=== PATIENT | female | born 1975 | race Caucasian/White ===

== ENCOUNTER 2016-08-20 16:34 | Emergency (ER) | payer OTHER ==
[2016-08-20 17:13] VITALS: BP 116/67; TEMP 98.1; BMI 26.0
--- NOTE | 2016-08-20 17:13 | PDOC ---
Rapid Medical Evaluation Time Seen by Provider: 08/20/16 17:10 Medical Evaluation: Allergies Allergy/AdvReac Type Severity Reaction Status Date / Time Penicillins Allergy Severe Difficulty Verified 08/20/16 17:10 Breathing Pork/Porcine Containing Allergy Hives Verified 08/20/16 17:10 Products 08/20/16 17:11 I have performed a brief in-person evaluation of this patient. The patient presents with a chief complaint of: Lower back pain x 3 days after cleaning home. H/o fibromyalgia and "7 herniated discs in my spine". On muscle relaxants , lyrica and gabapentin at home and taking meds w/ no relief Pertinent physical exam findings: Tachycardic to 108 and appears uncomfortable 2 /2 pain w/ diffuse ttp to lower abd I have ordered the following: nothing, defer pain management to ED provider The patient will proceed to the ED for further evaluation.
--- NOTE | 2016-08-20 17:52 | PDOC ---
History of Present Illness - General Chief Complaint: Injury Stated Complaint: INJURY Time Seen by Provider: 08/20/16 17:10 History Source: Patient Exam Limitations: No Limitations - History of Present Illness Initial Comments: CHIEF COMPLAINT: 40 y/o afebrile female with PMH 7 slipped discs in her back c/ o back pain x 3 days. 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 She states she took flexeril once on the first day and once yesterday without relief. She states the pain travels into her right leg. She denies fall, new trauma to back, numbness/tingling in LEs, saddle anesthesia, bowel/ bladder incontinence. Vital signs on arrival are notable for pulse of 108. REVIEW OF SYSTEMS: GENERAL/CONSTITUTIONAL: No fever/chills. No weakness. No weight change. HEAD, EYES, EARS, NOSE AND THROAT: No change in vision. No ear pain or discharge. No sore throat. CARDIOVASCULAR: No chest pain or shortness of breath. RESPIRATORY: No cough, wheezing, or hemoptysis. GASTROINTESTINAL: No abd pain, nausea, vomiting, diarrhea. GENITOURINARY: No dysuria, frequency, or change in urination. MUSCULOSKELETAL: No joint or muscle swelling or pain. No neck pain. +low back pain. SKIN: No rash or easy bruising. NEUROLOGIC: No headache, vertigo, loss of consciousness, or loss of sensation. PHYSICAL EXAM: GENERAL: The patient is awake, alert, and fully oriented, in no acute distress. She is well appearing and ambulatory with normal gait. HEAD: Normal with no signs of trauma. ENT: Pupils equal, round and reactive to light, extraocular movements intact, sclera anicteric, conjunctiva clear. Neck supple. LUNGS: Clear to auscultation bilaterally. Normal excursion. No respiratory distress or use of accessory muscles. CV: RRR, S1/S2, no MRG. Cap refill < 2 sec. ABDOMEN: Soft, non-distended, non-tender even to deep palpation, no hepatomegaly or splenomegaly, no masses. BACK: Reproducible pain with palpation of right lower lumbar paravertebral muscles and in right gluteal and piriformis muscles. EXTREMITIES: Normal range of motion, no edema. NEUROLOGICAL: Normal speech, normal gait. CN II-XII grossly intact. No saddle anesthesia. PSYCH: Normal mood, normal affect. SKIN: Warm, dry, normal turgor, no rashes or lesions noted. Past History - Past Medical History Allergies/Adverse Reactions: Allergies Allergy/AdvReac Type Severity Reaction Status Date / Time Penicillins Allergy Severe Difficulty Verified 08/20/16 17:10 Breathing Pork/Porcine Containing Allergy Hives Verified 08/20/16 17:10 Products Home Medications: Ambulatory Orders Levetiracetam [Keppra] 750 mg PO BID 09/30/12 Metformin HCl [Glucophage] 500 mg PO DAILY 09/30/12 Clindamycin [Cleocin -] 300 mg PO QID #28 capsule 08/11/15 Asthma: Yes CVA: Yes (AGE 15) Diabetes: Yes HTN: Yes (CX MEDS OFTEN FOR UNCONTROLLED HTN) Kidney Stones: Yes Suicide Attempt (Hx): No Seizures: Yes Other medical history: BACK PROBLEMS,FIBROMYALGIA - Surgical History Cholecystectomy: Yes - Immunization History Immunization Up to Date: Yes (FLU AND PNA AUGUST 2012) - Psycho/Social/Smoking Cessation Hx Anxiety: No Suicidal Ideation: No Smoking Status: No Smoking History: Never smoked Years of Tobacco Use: 23 Have you smoked in the past 12 months: No Number of Cigarettes Smoked Daily: 0 Information on smoking cessation initiated: No Hx Alcohol Use: No Drug/Substance Use Hx: No Substance Use Type: None *Physical Exam - Vital Signs Last Vital Signs Temp Pulse Resp BP Pulse Ox 98.1 F 108 H 18 116/67 100 08/20/16 17:10 08/20/16 17:10 08/20/16 17:10 08/20/16 17:10 08/20/16 17:10 Medical Decision Making - Medical Decision Making A/P: 40 y/o afebrile female with chronic low back pain c/o flare up of right lower back pain. The patient is presenting with signs and symptoms of sciatica. Suggested she take Flexeril and Ibuprofen 3 times per day with food for pain, massage the affected area and stretch hourly (stretches were demonstrated in the ER). The patient was instructed to f/u with her regular doctor within 1 week if symptoms do not improve. The patient verbalizes understanding of all instructions, has no further questions and is awaiting discharge. *DC/Admit/Observation/Transfer Diagnosis at time of Disposition: Sciatica of right side Low back pain Qualifiers: Chronicity: acute Back pain laterality: right Sciatica presence: with sciatica Sciatica laterality: sciatica of right side Qualified Code(s): M54.41 - Lumbago with sciatica, right side - Discharge Dispostion Disposition: HOME Condition at time of disposition: Good - Referrals Referrals: Joyce York MD [Primary Care Provider] - Call tomorrow - Patient Instructions Printed Discharge Instructions: DI for Back Pain With Sciatica Additional Instructions: Discharge Instructions: -Take Ibuprofen and Flexeril 3 times per day with food -Stretch your back every hour as shown in the ER. -Massage the affected area multiple times per day -Apply heating pad to the affected area -Follow up with your doctor as soon as possible. -Return to the ER with any worsening or concerning symptoms
[2016-08-20 18:19] VITALS: PULSE 84
== END 2016-08-20 18:15 | disposition home or self-care (01) ==
LOC: JERFT 16:34
DX: M54.41 Lumbago with sciatica, right side (principal); I10 Essential (primary) hypertension; E11.9 Type 2 diabetes mellitus without complications; Z79.84 Long term (current) use of oral hypoglycemic drugs; G40.909 Epilepsy, unspecified, not intractable, without status epilepticus; Z86.73 Personal history of transient ischemic attack (TIA), and cerebral infarction without residual deficits
CPT/HCPCS: 99281-25

== ENCOUNTER 2019-04-24 07:24 | Day surgery (SDC) | payer OTHER ==
[2019-04-23 13:50] VITALS: BMI 27.3
--- NOTE | 2019-04-24 09:01 | HP ---
Admitting History and Physical - Admission Chief Complaint: Axial Neck Pain History of Present Illness: Pt presents for axial neck pain. She is s/p one diagnostic cervical mbb. She is her for second diagnostic Mbb. History Source: Patient - Past Medical History ...LMP: 04/05/19 - Advance Directives Advance Directives: Yes: Living Will, Health Care Proxy - Smoking History Smoking history: Never smoked Have you smoked in the past 12 months: No Aproximately how many cigarettes per day: 0 - Alcohol/Substance Use Hx Alcohol Use: No Home Medications - Allergies Allergies/Adverse Reactions: Allergies Allergy/AdvReac Type Severity Reaction Status Date / Time Penicillins Allergy Severe Difficulty Verified 04/23/19 13:51 Breathing Pork/Porcine Containing Allergy Hives Verified 04/23/19 13:51 Products - Home Medications Home Medications: Ambulatory Orders Albuterol Sulfate Inhaler - [Ventolin Hfa Inhaler -] 2 inh PO Q6H 04/10/17 Aspirin/Acetaminophen/Caffeine [Excedrin Migraine Caplet] 1 each PO PRN PRN Physical Examination Vital Signs: Vital Signs Temperature 98.1 F 04/24/19 07:49 Pulse Rate 76 04/24/19 07:49 Respiratory Rate 20 04/24/19 07:49 Blood Pressure 108/64 04/24/19 07:49 O2 Sat by Pulse Oximetry (%) 98 04/24/19 07:49 Constitutional: Yes: Well Nourished, No Distress, Calm Eyes: Yes: Conjunctiva Clear HENT: Yes: Atraumatic, Normocephalic Neck: Yes: Trachea Midline Cardiovascular: Yes: Regular Rate and Rhythm Respiratory: Yes: Regular Musculoskeletal: Yes: Other (NECK PAIN) Assessment/Plan The patients neck pain is seconday to cervical spondylosis s/p 1 diagnostic medial branch block. 1. Pt is here today for second diagnostic at C3 C4 c5 Bilateral. 2. Follo up in 1 week for follow up. David Palacios DO
[2019-04-24] MEDS ORDERED: BUPIVACAINE HCL/PF 0.5% (5MG/ML) 10 ML VIAL IJ ONE (10:06)
[2019-04-24] MEDS ORDERED: IOHEXOL 180 MG/1 ML ML IJ ONE (10:11)
[2019-04-24 10:38] VITALS: PULSE 73
[2019-04-24 11:01] VITALS: BP 103/63; TEMP 98.6
--- NOTE | 2019-04-25 15:43 | PROC ---
Procedure Note Procedure: Date: 04/24/2019 : 1975 Age: 43 Year(s) Sex: Female Name of the patient: Amparo Nicholas Preoperative Diagnosis: Neck pain , Cervical spondylosis Postoperative Diagnosis: Same Procedure Performed: Cervical Medial branch block C3 C4 C5 Bilateral Anesthesia: Local Procedure: After the risks and benefits were explained, informed consent was obtained. The patient was then taken to the procedure room and positioned prone on the procedure table. Time out was performed. The region overlying the appropriate vertebral bodies was identified using fluoroscopy. The skin was prepped and draped in the usual sterile fashion. Using fluoroscopic guidance, 25 gauge 3.5 inch spinal needles were then introduced to the fossa at the center of the waists of the articular pillars where the BILATERAL C3, C4, and C5 medial branches are located. Omnipaque 180 confirmed appropriate needle placement. There was no epidural or vascular flow observed. .5 % bupivacaine was drawn into a syringe. 0.5cc of this solution was then injected at each level. The same procedure was repeated on the LEFT side at the same levels. The patient tolerated the procedure well and there were no complications. The patient was taken to the post procedure recovery area in good condition. Vital signs remained stable before, during, and after the procedure. The patient was given oral and written follow-up instructions. The patient was given a follow up appointment with me in the near future. David BARRY
== END 2019-04-24 11:05 | disposition home or self-care (01) ==
LOC: JASU-SURG 07:24
PROVIDERS: ATTEND Pain Medicine Pain Medicine
PROC: BR14YZZ Fluoroscopy of Cervical Facet Joint(s) using Other Contrast (ICD-10-PCS; 2019-04-24)
PROC: 3E0T3BZ Introduction of Anesthetic Agent into Peripheral Nerves and Plexi, Percutaneous Approach (ICD-10-PCS; principal; 2019-04-24 10:02)
DX: M47.892 Other spondylosis, cervical region (principal); M54.2 Cervicalgia
CPT/HCPCS: 76000-TC-FY; 84703

== ENCOUNTER 2019-11-23 10:48 | Emergency (ER) | payer OTHER ==
[2019-11-23 10:56] VITALS: BP 109/81; PULSE 104; TEMP 99.2; BMI 27.9
--- OUTSIDE RECORDS SUMMARY | 2019-11-23 11:20 | XMS ---
:1975 Author Organization [facility] Care Team Providers Name Role Phone EUGENE, CNR9 Unavailable Unavailable David Palacios Unavailable David Palacios Unavailable Re-disclosure Warning The records that you are about to access may contain information from federally- assisted alcohol or drug abuse programs. If such information is present, then the following federally mandated warning applies: This information has been disclosed to you from records protected by federal confidentiality rules (42 CFR part 2). The federal rules prohibit you from making any further disclosure of this information unless further disclosure is expressly permitted by the written consent of the person to whom it pertains or as otherwise permitted by 42 CFR part 2. A general authorization for the release of medical or other information is NOT sufficient for this purpose. The Federal rules restrict any use of the information to criminally investigate or prosecute any alcohol or drug abuse patient.The records that you are about to access may contain highly sensitive health information, the redisclosure of which is protected by Article 27-F of the [place] State Public Health law. If you continue you may haveaccess to information: Regarding HIV / AIDS; Provided by facilities licensed or operated by the [facility] Office of Mental Health; or Provided by the [facility] Office for People With Developmental Disabilities. If such information is present, then the following [facility] mandated warning applies: This information has been disclosed to you from confidential records which are protected by state law. State law prohibits you from making any further disclosure of this information without the specific written consent of the person to whom it pertains, or as otherwise permitted by law. Any unauthorized further disclosure in violation of state law may result in a fine or [place] health care facility sentence or both. A general authorization for the release of medical or other information is NOT sufficient authorization for further disclosure. Allergies and Adverse Reactions Type Description Substance Reaction Status Data Source(s ) Drug allergy NSAIDS Drug allergy Unknown Active eCW3 ([facility]) Encounters Encounter Providers Location Date Indications Data Source(s ) Outpatient Attender: CNR9 [facility] 10/03/2019 [facility] ([facility] 11:36:20 AM [facility]) Patient admitted. Attender: David Palacios 10/01/2019 12:00:00 AM EDT [facility] ([facility], ) Office Outpatient Attender: [facility] 09/02/2019 09:46:47 AM [facility] ([facility]) Patient admitted. Outpatient Attender: [facility] 05/22/2019 06:26:17 AM [facility] ([facility]) Patient admitted. Outpatient Attender: [facility] 03/26/2019 03:24:50 PM [facility] ([facility]) Patient admitted. Outpatient Attender: [address] 03/16/2019 04:57:01 PM [facility] ([facility]) Patient admitted. Outpatient [facility] 04/23/2018 12:00:00 AM eCW3 ([facility] A28 EST - 04/23/2018 12:00:00 [facility]) AM EST Immunizations Vaccine Date Status Description Data Source(s) As of November 1998, a 04/23/2018 completed eCW3 ([facility] 2-dose hepatitis B 05:15:00 PM [facility]) schedule for adolescents (11-15 year olds) was FDA approved for [employer]ck's Recombivax HB adult formulation. Use code 43 for the 2-dose. This code should be used for any use of standard adult formulation of hepatitis B vaccine. Medications Medication Brand Start Product Dose Route Administrative Pharmacy at Indications Reaction Description Data Name Date Form Instructions Instructions Source(s) Diclofenac DICLOF 09/30/ GEL 1 complet DICLOFE NAC MED[facility] (St Sodium 0.2019 ed TOPICAL [facility] MG/MG TOPICA 12:00: Medical, Topical Gel [id number] 00 AM PC) DICLOFENAC 33 EDT TOPICAL:855 633 Glucose UNK 01/11/ active Glucose Test eCW3 Test Strips 2015 Strips ([facility] Compatiable 12:00: Compatiable [facility] with 00 AM with Health Patients EST Patients Care) Machine Machine LANCETS UNK 01/11/ active LANCETS eCW3 2015 ([facility] 12:00: [facility] 00 AM Health EST Care) Sumatriptan Imitre 12/02/ active Imitrex 100 eCW3 100 MG Oral x 100 2013 mg ([facility] Tablet mg 12:00: [facility] [Imitrex] 00 AM Health Imitrex 100 EDT Care) mg 120 ACTUAT Symbic 2.0 active Symbicor t eCW3 Budesonide ort 2012 {puff 160-4.5 ([facility] on 0.16 160-4. 12:00: s} MCG/ACT [facility] MG/ACTUAT / 5 00 AM Health formoterol MCG/AC EST Care) fumarate T 0.0045 MG/ACTUAT Metered Dose Inhaler [Symbicort] Symbicort 160-4.5 MCG/ACT Pseudoephed Pseudo 12/20/ suspend Pseudo ephedr eCW3 rine ephedr 2011 ed ine HCl 30 ([facility] Hydrochlori ine 12:00: mg [facility] de 30 MG HCl 30 00 AM Health Oral Tablet mg EDT Care) Pseudoephed rine HCl 30 mg 200 ACTUAT Ventol 2.0 active Ventolin HFA eCW3 Albuterol in HFA 2011 {puff 108 (90 ([facility] son 0.09 108 12:00: s} Base) [facility] MG/ACTUAT (90 00 AM MCG/ACT Health Metered Base) EST Care) Dose MCG/AC Inhaler T [Ventolin] Ventolin HFA 108 (90 Base) MCG/ACT Clobetasol Clobet 1.0 active Clobetas ol eCW3 Propionate asol 2011 {appl Propionate ([facility] 0.5 MG/ML Propio 12:00: icati 0.05 % Stacy er Topical adryan 00 AM on_to Health Cream 0.05 % EST _affe Care) Clobetasol cted_ Propionate area} 0.05 % Levetiracet Keppra 03/13/ active Keppra 500 eCW3 am 500 MG 500 mg 2012 mg ([facility] Oral Tablet 12:00: [facility] [Keppra] 00 AM [facility] Keppra 500 EST Care) mg pregabalin Lyrica 1.0 active Lyrica 75 MG eCW3 75 MG Oral 75 MG {caps ([facility] Capsule ule} [facility] [Lyrica] [facility] Lyrica 75 Care) MG Permethrin Permet suspend Permethri n 5 eCW3 50 MG/ML hrin 5 ed % ([facility] Topical % [facility] Permethrin Care) 5 % Albuterol UNK 2.0 active Albuterol eCW 3 Sulfate HFA {puff Sulfate HFA ([facility] 108 (90 s} 108 (90 [facility] Base) Base) Health MCG/ACT MCG/ACT Care) Insurance Providers Payer name Policy type Policy ID Covered Covered democrat's Policy P alfredo / Coverage democrat ID relationship to Alonzo Inf ormation type alonzo AFFINITY [id number] [employer] [id number] Problems, Conditions, and Diagnoses Code Display Name Description Problem Type Effective Data Dates Source(s) M47.812 Spondylosis without SPONDYLOSIS Problem 10/01/2019 MEDG EN (St myelopathy or WITHOUT 12:00:00 AM [facility] radiculopathy, MYELOPATHY OR EDT Medical , ) cervical region RADICULOPATHY, CERVICAL REGION D24.9 Fibroadenoma of Fibroadenoma of Problem 11/19/2017 eCW3 ([facility] breast, unspecified breast, 12:00:00 AM [facility] laterality unspecified EDT Care) laterality M15.9 Osteoarthritis Polyosteoarthriti Problem 04/01/2017 eCW 3 ([facility] s, unspecified 12:00:00 AM [facility] EST Care) M54.41 Lumbago with Lumbago with Problem 04/01/2017 eCW3 ([facility] sciatica, right side sciatica, right 12:00:00 A [facility] EST Care) G40.909 Epilepsy Epilepsy, Problem 04/01/2017 eCW3 ([facility] unspecified, not 12:00:00 AM [facility] ealth intractable, EST Care) without status epilepticus G89.29 Other chronic pain Other chronic Problem 04/01/2017 eCW 3 ([place] pain 12:00:00 AM [facility]) R92.8 Abnormal mammogram Abnormal Problem 12/12/2016 eCW3 ( [place] mammogram 12:00:00 AM [facility] EDT Care) K21.9 Gastroesophageal GERD Problem 05/30/2016 eCW3 ([facility] reflux disease (gastroesophageal 12:00:00 AM [facility] reflux disease) EDT Care) J45.40 Moderate persistent Asthma, moderate Problem 05/02/2016 eCW3 ([place] asthma persistent 12:00:00 AM [facility]) Surgeries/Procedures Procedure Description Date Indications Data Source(s) Documentation of current 10/01/2019 MED GEN ([facility] medications (procedure) 12:00:00 AM EDT Cristiano chavez, REILLY) Documentation of current 10/01/2019 MED GEN ([facility] medications (procedure) 12:00:00 AM EDT Cristiano chavez, PC) Documentation of current 10/01/2019 MED GEN ([facility] medications (procedure) 12:00:00 AM EDT Cristiano chavez, ) Documentation of current 10/01/2019 MED GEN ([facility] medications (procedure) 12:00:00 AM EDT kathy, PC) Documentation of current 10/01/2019 MED GEN ([facility] medications (procedure) 12:00:00 AM EDT REILLY [place]) OFFICE OUTPATIENT VISIT 10/01/2019 MEDG EN ([facility] 15 MINUTES 12:00:00 AM EDT Medical, ) Social History Code Duration Value Status Description Data Source(s ) Smoking 11/03/2019 - No alcohol - completed - No alcohol - No M EDGEN ([facility] 12:00:00 AM EDT No smoking - smoking - Medica l, ) Cigarettes:neve Cigarettes:never r Smoking 11/03/2019 Unknown if ever completed Unknown if ever MEDG EN ([facility] 12:00:00 AM EDT smoked smoked Medical, ) Smoking 04/30/2018 Former Smoker completed Former Smoker eCW3 ([facility] 12:00:00 AM [facility]) Former Smoker completed Former Smoker eCW3 ([facility]) Vital Signs ID Date Data Source UNK Name Value Range Interpretation Code Description Data Source(s) Heart rate 73 /min 73 /min [facility] ([facility] , ) Respiratory rate 14 /min 14 /min [facility] ( [facility]) Inhaled oxygen 93 % 93 % MEDGEN ([facility], ) Body mass index 28.5 kg/m2 28.5 kg/m2 MEDGEN (S t (BMI) [Ratio] [facility], ) Diastolic blood 60 mm[Hg] 60 mm[Hg] MEDGEN ([facility]) Systolic blood 90 mm[Hg] 90 mm[Hg] MED[facility] ([facility]) Body weight 151 lb 151 lb MEDGEN ([facility]) Body height 61 in 61 in MEDGEN ([facility]) Diastolic blood 64 mm[Hg] 64 mm[Hg] eCW3 ([facility]) Systolic blood 98 mm[Hg] 98 mm[Hg] eCW3 ([facility]) Body temperature 98.3 [degF] 98.3 [degF] eCW3 ( [facility]) Heart rate 20 /min 20 /min eCW3 ([facility]) Body mass index 26.26 kg/m2 26.26 kg/m2 eCW3 ([facility] (BMI) [Ratio] [facility]) Body weight 139 [lb_av] 139 [lb_av] eCW3 ([facility]) Body height 61 [in_i] 61 [in_i] eCW3 ([facility])
[2019-11-23] MEDS ORDERED: DIPHTH,PERTUSS(ACELL),TET 0.5 ML DISP.SYRIN IM ONE ×2 (11:23→11:24)
--- NOTE | 2019-11-23 11:26 | PDOC ---
History of Present Illness - General Chief Complaint: Injury Stated Complaint: Laceration Time Seen by Provider: 11/23/19 11:01 History Source: Patient Exam Limitations: Clinical Condition - History of Present Illness Initial Comments: 11/23/19 11:28 Patient with no significant past medical history present with complaint of laceration to the palmar aspect of left hand status post accidentally jamming knife into the left hand while cutting sausages. Patient on Coumadin for right LE DVT. Patient with history of hand laceration with a year ago course and tendon rupture and and unable to fully move left ring finger since incident. Denies any numbness or tingling sensation to rest of the fingers. Denies difficulty moving wrist or fingers or hand. Denies any other symptoms Timing/Duration: reports: just prior to arrival Past History - Medical History Allergies/Adverse Reactions: Allergies Allergy/AdvReac Type Severity Reaction Status Date / Time Penicillins Allergy Severe Difficulty Verified 11/23/19 10:50 Breathing Pork/Porcine Containing Allergy Hives Verified 11/23/19 10:50 Products Home Medications: Ambulatory Orders Albuterol Sulfate Inhaler - [Ventolin Hfa Inhaler -] 2 inh PO Q6H 04/10/17 Aspirin/Acetaminophen/Caffeine [Excedrin Migraine Caplet] 1 each PO PRN PRN 04/23/19 Sulfamethoxazole/Trimethoprim [Bactrim Ds -] 1 tab PO BID 5 Days #10 tablet 11/23/19 Anemia: No Asthma: Yes Cancer: No Cardiac Disorders: No CVA: No COPD: No CHF: No DVT: Yes (lt leg 11/21) Dementia: No Diabetes: Yes (diet controlled) GI Disorders: No Disorders: No HTN: Yes (non adherent to meds) Hypercholesterolemia: No Kidney Stones: Yes Liver Disease: No Seizures: Yes (none since 2015) Thyroid Disease: No - Surgical History Abdominal Surgery: No Appendectomy: No Cardiac Surgery: No Cholecystectomy: Yes Lung Surgery: No Neurologic Surgery: No - Reproductive History Is Patient Now?: No - Immunization History Immunization Up to Date: Yes (FLU AND PNA AUGUST 2012) - Psycho-Social/Smoking History Smoking Status: No Smoking History: Never smoked Years of Tobacco Use: 23 Have you smoked in the past 12 months: No Number of Cigarettes Smoked Daily: 0 - Substance Abuse Hx (Audit-C & DAST Scrn) How often the patient has a drink containing alcohol: Never Score: In Men: 4 or > Positive; In Women: 3 or > Positive: 0 Screen Result (Pos requires Nsg. Audit-10AR): Negative In the last yr the pt used illegal drug/Rx for NonMed reason: No Score: Yes response is considered Positive: 0 Screen Result (Positive result requires Nsg. DAST-10): Negative Review of Systems - Review of Systems Able to Perform ROS?: Yes Is the patient limited Syriac proficient: No Constitutional: No: Chills, Fever, Malaise HEENTM: No: Symptoms Reported Respiratory: No: Symptoms reported Cardiac (ROS): No: Symptoms Reported, Lightheadedness ABD/GI: No: Symptoms Reported Musculoskeletal: Yes: Symptoms Reported, See HPI, Muscle Pain (left hand pain) Integumentary: Yes: Symptoms Reported, See HPI, Other (laceration to left hand) Neurological: No: Symptoms reported, See HPI, Weakness All Other Systems: Reviewed and Negative *Physical Exam - Vital Signs Last Vital Signs Temp Pulse Resp BP Pulse Ox 99.2 F 104 H 18 109/81 100 11/23/19 10:51 11/23/19 10:51 11/23/19 10:51 11/23/19 10:51 11/23/19 10:51 - Physical Exam 11/23/19 11:34 GENERAL: Well developed, well nourished. Awake and alert. No acute distress. PULMONARY: No evidence of respiratory distress. MUSCULOSKELETAL : 1 cm linear superficial laceration to palmar aspect of left hand proximal to MCP of left index finger with minimal bleeding. Full range of motion of index finger. Normal strength left index finger. Normal sensory to left index and other fingers except ring finger. SKIN: Warm and dry. Normal capillary refill. 1 cm linear superficial laceration to palmar aspect of left hand proximal to MCP of left index finger with minimal bleeding. NEUROLOGICAL: Alert, awake, appropriate. No motor deficits in the lower extremities. Gait is normal without ataxia. PSYCHIATRIC: Cooperative. Good eye contact. Appropriate mood and affect. General Appearance: Yes: Nourished, Appropriately Dressed. No: Apparent D istress Procedures - Laceration/Wound Repair Left Anterior Plantar Hand Wound Length: to 2.5 cm Wound Explored: clean Wound's Depth, Shape: superficial, linear Irrigated w/ Saline: Yes Betadine Prep: Yes Anesthesia: 1% Lidocaine Amount of Anesthetic (ccs): 1 Wound Repaired With: Sutures Suture Size/Type: 5:0, nylon Number of Sutures: 3 Layer Closure: No Sterile Dressing Applied: Yes Splint Applied: No Sling Applied: No Progress: 11/23/19 11:33 Wound cleaned with Betadine and closed with 3 interrupted 5-0 nylon sutures after wound infiltrated with 1 cc 1% lidocaine. Hemostasis achieved. Patient tolerated procedure well. Bacitracin applied to wound and wound covered with a bandage. Tetanus vaccine given by nurse. Medical Decision Making - Medical Decision Making 11/23/19 11:29 Patient with no significant past medical history present with complaint of laceration to the palmar aspect of left hand status post accidentally jamming knife into the left hand while cutting sausages. Patient on Coumadin for right DVT. Patient with history of hand laceration with a year ago course and tendon rupture and and unable to fully move left ring finger since incident. Denies any numbness or tingling sensation to rest of the fingers. Denies difficulty moving wrist or fingers or hand. Denies any other symptoms Exam significant for 1 cm linear superficial laceration to palmar aspect of left hand proximal to MCP of left index finger with minimal bleeding. Full range of motion of index finger. Normal strength left index finger. Normal sensory to left index and other fingers except ring finger. Wound cleaned with Betadine and closed with 3 interrupted 5-0 nylon sutures after wound infiltrated with 1 cc 1% lidocaine. Hemostasis achieved. Patient tolerated procedure well. Bacitracin applied to wound and wound covered with a bandage. Tetanus vaccine given by nurse. Patient stable for discharge on Bactrim and advised for infection prophylaxis due to penicillin allergies with follow-up with hand specialist in 2 days for reassessment and follow-up in 1 week for suture removal Discharge - Discharge Information Problems reviewed: Yes Clinical Impression/Diagnosis: Laceration of left hand without complication, excluding fingers Qualifiers: Encounter type: initial encounter Qualified Code(s): S61.412A - Laceration without foreign body of left hand, initial encounter Condition: Stable Disposition: HOME - Admission No - Additional Discharge Information Prescriptions: Sulfamethoxazole/Trimethoprim [Bactrim Ds -] 1 tab PO BID 5 Days #10 tablet - Follow up/Referral Referrals: Gabriel Markham MD [Staff Physician] - Geraldo Mcgowan MD [Staff Physician] - - Patient Discharge Instructions Patient Printed Discharge Instructions: DI for Laceration Repair -- Simple Additional Instructions: Keep wound clean and dry for the next 24 hours. Take prescribed antibiotic to prevent infection. Take Tylenol as needed for pain. apply bacitracin or Neosporin to wound twice a day. Follow-up with referred to hand specialist for follow-up. Follow-up back in the ER here or with your primary care in 1 week for suture removal - Post Discharge Activity
== END 2019-11-23 11:37 | disposition home or self-care (01) ==
LOC: JERFT 10:48 → JER 10:48 → JERFT 11:37
PROC: 0HQGXZZ Repair Left Hand Skin, External Approach (ICD-10-PCS; principal; 2019-11-23)
PROC: 3E0234Z Introduction of Serum, Toxoid and Vaccine into Muscle, Percutaneous Approach (ICD-10-PCS; 2019-11-23)
DX: S61.412A Laceration without foreign body of left hand, initial encounter (principal)
CPT/HCPCS: 90715; 99284-25

== ENCOUNTER 2019-12-02 12:22 | Emergency (ER) | payer OTHER ==
[2019-12-02 12:30] VITALS: BP 102/61; PULSE 82; TEMP 98.2; BMI 33.0
--- NOTE | 2019-12-02 13:09 | PDOC ---
Suture Removal/Wound Check HPI - History of Present Illness Chief Complaint: Suture/Staple Removal(Here) Stated Complaint: Suture/Staple Removal(Here) Time Seen by Provider: 12/02/19 12:33 History Source: Yes: Patient Treated at: [facility] Date of Last ED visit: 11/23/19 Past History - Medical History Allergies/Adverse Reactions: Allergies Allergy/AdvReac Type Severity Reaction Status Date / Time Penicillins Allergy Severe Difficulty Verified 11/23/19 10:50 Breathing Pork/Porcine Containing Allergy Hives Verified 11/23/19 10:50 Products Home Medications: Ambulatory Orders Albuterol Sulfate Inhaler - [Ventolin Hfa Inhaler -] 2 inh PO Q6H 04/10/17 Aspirin/Acetaminophen/Caffeine [Excedrin Migraine Caplet] 1 each PO PRN PRN 04/23/19 Sulfamethoxazole/Trimethoprim [Bactrim Ds -] 1 tab PO BID 5 Days #10 tablet 11/23/19 Anemia: No Asthma: Yes Cancer: No Cardiac Disorders: No CVA: No COPD: No CHF: No DVT: Yes (lt leg 11/21) Dementia: No Diabetes: Yes (diet controlled) GI Disorders: No Disorders: No HTN: Yes (non adherent to meds) Hypercholesterolemia: No Kidney Stones: Yes Liver Disease: No Seizures: Yes (none since 2015) Thyroid Disease: No - Surgical History Abdominal Surgery: No Appendectomy: No Cardiac Surgery: No Cholecystectomy: Yes Lung Surgery: No Neurologic Surgery: No - Reproductive History Is Patient Now?: No - Immunization History Immunization Up to Date: Yes (FLU AND PNA AUGUST 2012) - Psycho-Social/Smoking History Smoking Status: No Smoking History: Never smoked Years of Tobacco Use: 23 Have you smoked in the past 12 months: No Number of Cigarettes Smoked Daily: 0 Information on smoking cessation initiated: No - Substance Abuse Hx (Audit-C & DAST Scrn) How often the patient has a drink containing alcohol: Never Score: In Men: 4 or > Positive; In Women: 3 or > Positive: 0 Screen Result (Pos requires Nsg. Audit-10AR): Negative In the last yr the pt used illegal drug/Rx for NonMed reason: No Score: Yes response is considered Positive: 0 Screen Result (Positive result requires Nsg. DAST-10): Negative *Review of Systems - Review of Systems Constitutional: No: Chills, Fever Integumentary: No: Erythema *Physical Exam - Vital Signs Last Vital Signs Temp Pulse Resp BP Pulse Ox 98.2 F 82 19 102/61 99 12/02/19 12:25 12/02/19 12:25 12/02/19 12:25 12/02/19 12:25 12/02/19 12:25 - Physical Exam General Appearance: Yes: Appropriately Dressed. No: Apparent Distress HEENT: positive: Normal Voice Neck: positive: Supple Respiratory/Chest: negative: Respiratory Distress Integumentary: positive: Dry, Warm, Other (well healed lac to L palm w/ 3 sutures intact) Neurologic: positive: Fully Oriented, Alert, Normal Mood/Affect Medical Decision Making - Medical Decision Making 12/02/19 14:36 44 yo F, chronic deformity to L 3rd digit s/p remote ? tendon injury per pt, here for suture removal to L palm. No pain, redness, discharge, f/c See exam Suture removal 3 sutures removed form L palm without complications Discharge - Discharge Information Problems reviewed: Yes Clinical Impression/Diagnosis: Visit for suture removal Condition: Good Disposition: HOME - Follow up/Referral Referrals: Dawna Horvath NP [Primary Care Provider] - Bernardo Carrion MD [Staff Physician] - - Patient Discharge Instructions Patient Printed Discharge Instructions: DI for Suture Removal - Post Discharge Activity
== END 2019-12-02 13:30 | disposition home or self-care (01) ==
LOC: JERFT 12:22
DX: Z48.02 Encounter for removal of sutures (principal)
CPT/HCPCS: 99281-25

== ENCOUNTER 2019-12-18 04:53 | Day surgery (SDC) | payer OTHER ==
--- OUTSIDE RECORDS SUMMARY | 2019-12-09 08:07 | XMS ---
:1975 Author Organization [facility] Care Team Providers Name Role Phone [id number], [id number] Unavailable Unavailable David Palacios Unavailable David [...] is protected by Article 27-F of the [facility] Public Health law. If you continue you may haveaccess to information: Regarding HIV / AIDS; Provided by facilities licensed or operated by the [facility] Office of Mental Health; or Provided by the [facility] Office for People With Developmental Disabilities. If such information is present, then the following [facility] mandated warning applies: This information has [...] law may result in a fine or residential sentence or both. A general authorization for the release of medical or other information is NOT sufficient authorization for further disclosure. Allergies and Adverse Reactions Type Description Substance Reaction Status Data Source(s ) Drug allergy NSAIDS Drug allergy Unknown Active eCW3 ([facility]) Encounters Encounter Providers Location Date Indications Data Source(s ) Outpatient Attender: CORTEZMartina [facility] 12/07/2019 [facility] ([facility] 04:08:48 PM [facility] EDT [facility]) Patient admitted. Attender: David Palacios 12/02/2019 12:00:00 AM EDT MED[facility] ([facility]) Office Outpatient Attender: CORTEZMartina [facility] 10/03/2019 11:36:20 AM [facility] ([facility]) Patient admitted. Attender: David Palacios 10/01/2019 12:00:00 AM EDT MEDGEN ([facility]) Office Outpatient Attender: CORTEZ9 [facility] 09/02/2019 09:46:47 AM [facility] ([facility]) Patient admitted. Outpatient Attender: [facility]9 [facility] 05/22/2019 06:26:17 AM [facility] ([facility]) Patient admitted. Outpatient Attender: CORTEZ9 [facility] 03/26/2019 03:24:50 PM [facility] ([facility]) Patient admitted. Outpatient Attender: [address] 03/16/2019 04:57:01 PM [facility] ([facility]) Patient admitted. Outpatient [facility] 04/23/2018 12:00:00 AM eCW3 ([facility] A28 EST - 04/23/2018 12:00:00 Health Care) AM EST Immunizations Vaccine Date Status Description Data Source(s) As of November 1998, a 04/23/2018 completed eCW3 ([facility] 2-dose hepatitis B 05:15:00 PM [facility] Health Care) schedule for adolescents (11-15 year olds) was FDA approved for [employer]'s Recombivax HB adult formulation. Use code 43 for the 2-dose. This code should be used for any use of standard adult formulation of hepatitis B vaccine. Medications Medication Brand Start Product Dose Route Administrative Pharmacy jennifer Indications Reaction Description Data Name Date Form Instructions Instructions Source(s) Diclofenac DICLOF 09/30/ GEL 1 complet DICLOFE NAC MEDGEN (St Sodium 0.01 2019 ed TOPICAL [facility] MG/MG TOPICA 12:00: Medical, Topical Gel [id number] 00 AM PC) DICLOFENAC 33 EDT TOPICAL:855 633 Diclofenac DICLOF 09/30/ GEL 1 complet DICLOFE NAC MEDGEN (St Sodium 0.01 2019 ed TOPICAL [facility] MG/MG TOPICA 12:00: [...] 100 eCW3 100 MG Oral x 100 2012 mg ([facility] Tablet mg 12:00: [facility] [Imitrex] 00 AM Health Imitrex 100 EDT Care) mg 120 ACTUAT Symbic 04/16/ 2.0 active Symbicor t eCW3 Budesonide ort [...] rine HCl 30 mg 200 ACTUAT Ventol 03/13/ 2.0 active Ventolin HFA eCW3 Albuterol in HFA 2011 {puff 108 (90 (Hud son 0.09 108 12:00: s} Base) [facility] MG/ACTUAT (90 00 AM MCG/ACT Health Metered Base) EST Care) Dose MCG/AC Inhaler T [Ventolin] Ventolin HFA 108 (90 Base) MCG/ACT Clobetasol Clobet 03/13/ 1.0 active Clobetas ol eCW3 Propionate asol 2011 {appl Propionate (H udson 0.5 MG/ML Propio 12:00: icati 0.05 % Stacy er Topical adryan 00 AM on_to Health Cream 0.05 % EST _affe Care) Clobetasol cted_ Propionate area} 0.05 % Levetiracet Keppra 03/13/ active Keppra 500 eCW3 am 500 MG 500 mg 2012 mg ([facility] Oral Tablet 12:00: [facility] [Keppra] 00 AM Health Keppra 500 EST Care) mg pregabalin Lyrica 1.0 active Lyrica 75 MG eCW3 75 MG Oral 75 MG {caps ([facility] Capsule ule} [facility] [Lyrica] Health Lyrica 75 Care) MG Permethrin Permet suspend Permethri n 5 eCW3 50 MG/ML hrin 5 ed % ([facility] Topical % [facility] Cream Health Permethrin Care) 5 % Albuterol UNK 2.0 active Albuterol eCW 3 Sulfate HFA {puff Sulfate HFA ([facility] 108 (90 s} 108 (90 [facility] Base) Base) Health MCG/ACT MCG/ACT Care) Insurance Providers Payer name Policy type Policy ID Covered Covered libertarian's Policy P alfredo / Coverage libertarian ID relationship to Alonzo Inf ormation type alonzo AFFINITY [id number] 1 [id number] [employer] [id number] Problems, Conditions, and Diagnoses Code Display Name Description Problem Type Effective Data Dates Source(s) M47.812 Spondylosis without SPONDYLOSIS Problem 10/01/2019 MEDG EN (St myelopathy or WITHOUT 12:00:00 AM [facility] radiculopathy, MYELOPATHY OR EDT Medical , ) cervical region RADICULOPATHY, CERVICAL REGION M47.812 Spondylosis without SPONDYLOSIS Problem 10/01/2019 MEDG EN (St myelopathy or WITHOUT 12:00:00 AM [facility] radiculopathy, MYELOPATHY OR EDT Medical , PC) cervical region RADICULOPATHY, CERVICAL REGION D24.9 Fibroadenoma of Fibroadenoma of Problem 11/19/2017 eCW3 ([facility] breast, unspecified breast, 12:00:00 AM [facility] laterality unspecified EDT Care) laterality M15.9 Osteoarthritis Polyosteoarthriti Problem 04/01/2017 eCW 3 ([facility] s, unspecified 12:00:00 AM [facility] EST Care) M54.41 Lumbago with Lumbago with Problem 04/01/2017 eCW3 ([facility] on sciatica, right side sciatica, right 12:00:00 A [facility] side EST Care) G40.909 Epilepsy Epilepsy, Problem 04/01/2017 eCW3 ([facility] unspecified, not 12:00:00 AM [facility] ealt intractable, EST Care) without status epilepticus G89.29 Other chronic pain Other chronic Problem 04/01/2017 eCW 3 ([facility] pain 12:00:00 AM [facility] EST Care) R92.8 Abnormal mammogram Abnormal Problem 12/12/2016 eCW3 ( [facility] mammogram 12:00:00 AM [facility] EDT Care) K21.9 Gastroesophageal GERD Problem 05/30/2016 [facility] (gastroesophageal 12:00:00 AM [facility] reflux disease) EDT Care) J45.40 Moderate persistent Asthma, moderate Problem 05/02/2016 eCW3 ([facility] asthma persistent 12:00:00 AM [facility] EST Care) Surgeries/Procedures Procedure Description Date Indications Data Source(s) Documentation of current 12/02/2019 MED GEN ([facility] medications (procedure) 12:00:00 AM EDT [facility]) OFFICE OUTPATIENT VISIT 12/02/2019 MEDG EN ([facility] 15 MINUTES 12:00:00 AM EDT [facility]) Documentation of current 10/01/2019 MED GEN ([facility] medications (procedure) 12:00:00 AM EDT [facility] [place]) Documentation of current 10/01/2019 MED GEN ([facility] medications (procedure) 12:00:00 AM EDT [facility]) Documentation of current 10/01/2019 MED GEN ([facility] medications (procedure) 12:00:00 AM EDT edical, ) Documentation of current 10/01/2019 MED GEN ([facility] medications (procedure) 12:00:00 AM EDT edical, ) Documentation of current 10/01/2019 MED GEN ([facility] medications (procedure) 12:00:00 AM EDT edical, ) Documentation of current 10/01/2019 MED [facility]ation of current 10/01/2019 MED GEN ([facility]) [facility]PATIENT VISIT 10/01/2019 MEDG EN ([facility] 15 MINUTES 12:00:00 AM T Medical, ) Documentation of current 10/01/2019 MED GEN ([facility]) [facility] Documentation of current 10/01/2019 MED GEN ([facility]procedure) [facility]:00[facility] Documentation of current 10/01/2019 MED GEN ([facility]procedure) 12:00:[facility] Documentation of current 10/01/2019 MED GEN ([facility]procedure) [facility]:00[facility] Documentation of current 10/01/2019 MED GEN ([facility] medications (procedure) 12:00:00 AM EDT edical, ) OFFICE OUTPATIENT VISIT 10/01/2019 MEDG EN ([facility] 15 MINUTES 12:00:00 AM T Medical, ) Social History Code Duration Value Status Description Data Source(s ) Smoking 12/08/2019 - No alcohol - completed - No alcohol - No M EDGEN ([facility] 12:00:00 AM EDT No smoking - smoking - Medica l, ) Cigarettes:neve Cigarettes:never r Smoking 12/08/2019 Unknown if ever completed Unknown if ever MEDG EN ([facility] 12:00:00 AM EDT smoked smoked Medical, ) Smoking 11/03/2019 - No alcohol - completed - No alcohol - No M EDGEN ([facility] 12:00:00 AM EDT No smoking - smoking - Medica l, ) Cigarettes:neve Cigarettes:never r Smoking 11/03/2019 Unknown if ever completed Unknown if ever MEDG EN ([facility] 12:00:00 AM EDT smoked smoked [facility], ) Smoking 04/30/2018 Former Smoker completed Former Smoker eCW3 ([facility] 12:00:00 AM [facility]) Former Smoker completed Former Smoker eCW3 ([facility]) Vital Signs ID Date Data Source UNK Name Value Range Interpretation Code Description Data Source(s) Heart rate 68 /min 68 /min MEDGEN ([facility] , ) Respiratory rate 14 /min 14 /min MEDGEN ( [facility] , ) Inhaled oxygen 98 % 98 % MEDGEN ([facility], ) Body mass index 28.5 kg/m2 28.5 kg/m2 MEDGEN (S t (BMI) [Ratio] [facility], ) Diastolic blood 60 mm[Hg] 60 mm[Hg] MEDGEN (S [facility] , ) Systolic blood 90 mm[Hg] 90 mm[Hg] MEDGEN ([facility] , ) Body weight 151 lb 151 lb MEDGEN ([facility] , ) Body height 61 in 61 in MEDGEN ([facility]) Heart rate 73 /min 73 /min MEDGEN ([facility]) Respiratory rate 14 /min 14 /min MEDGEN ( [facility] , ) Inhaled oxygen 93 % 93 % MEDGEN ([facility], ) Body mass index 28.5 kg/m2 28.5 kg/m2 MEDGEN (S t (BMI) [Ratio] [facility], ) Diastolic blood 60 mm[Hg] 60 mm[Hg] MEDGEN (S [facility] , ) Systolic blood 90 mm[Hg] 90 mm[Hg] MEDGEN ([facility] , ) Body weight 151 lb 151 lb MEDGEN ([facility]) Body height 61 in 61 in MEDGEN ([facility]) Heart rate 73 /min 73 /min MEDGEN ([facility] , ) Respiratory rate 14 /min 14 /min MEDGEN ( [facility]) Inhaled oxygen 93 % 93 % MEDGEN ([facility]) Body mass index 28.5 kg/m2 28.5 kg/m2 MEDGEN (S t (BMI) [Ratio] [facility], ) Diastolic blood 60 mm[Hg] 60 mm[Hg] MEDGEN (S [facility]) Systolic blood 90 mm[Hg] 90 mm[Hg] MEDGEN ([facility]) Body weight 151 lb 151 lb MEDGEN ([facility]) Body height 61 in 61 in MEDGEN ([facility]) Diastolic blood 64 mm[Hg] 64 mm[Hg] eCW3 ([facility]) Systolic blood 98 mm[Hg] 98 mm[Hg] eCW3 ([facility]) Body temperature 98.3 [degF] 98.3 [degF] eCW3 ( [facility]) Heart rate 20 /min 20 /min eCW3 ([facility]) Body mass index 26.26 kg/m2 26.26 kg/m2 eCW3 (H udson (BMI) [Ratio] [facility]) Body weight 139 [lb_av] 139 [lb_av] eCW3 ([facility]) Body height 61 [in_i] 61 [in_i] eCW3 ([facility])
[2019-12-17 15:29] VITALS: BMI 26.4
--- NOTE | 2019-12-17 21:37 | PROC ---
Procedure Note Procedure: Pre procedure Diagnosis: Cervical Spondylosis Post Procedure Diagnosis: same Anesthesia: local Procedure Performed: Right and Left C3 C4 C5 medial branch block under fluorocopic guidance After the risks and benefits were explained, informed consent was obtained. The patient was then taken to the procedure room and positioned prone on the procedure table. Time out was performed. The region overlying the appropriate vertebral bodies was identified using fluoroscopy. The skin was prepped and draped in the usual sterile fashion. Using fluoroscopic guidance, 25 gauge 2.5 inch spinal needles were then introduced to the fossa at the center of the waists of the articular pillars where the BILATERAL C3, C4, and C5 medial branches are located. Omnipaque 180 confirmed appropriate needle placement. There was no epidural or vascular flow observed. .25 % bupivacaine was drawn into a syringe. 0.5cc of this solution was then injected at each level. The same procedure was repeated on the LEFT side at the same levels. The patient tolerated the procedure well and there were no complications. The patient was taken to the post procedure recovery area in good condition. Vital signs remained stable before, during, and after the procedure. The patient was given oral and written follow-up instructions. The patient was given a follow up appointment with me in the near future. David Palacios DO
[~2019-12-18 04:53] MED LIST: BUPIVACAINE HCL/PF 0.5% (5 MG/ML) 30 ML VIAL IJ ONE; IOHEXOL 180 MG/1 ML ML IJ ONE
--- OUTSIDE RECORDS SUMMARY | 2019-12-18 04:56 | XMS ---
:1975 Author Organization [facility] Care Team Providers Name Role Phone [id number], [id number] Unavailable Unavailable ErosDavid mcginnis Unavailable Erosa David Unavailable Re-disclosure Warning The records that you [...] is protected by Article 27-F of the [facility] Public Health law. If you continue you may haveaccess to information: Regarding HIV / AIDS; Provided by facilities licensed or operated by the [facility] Office of Mental Health; or Provided by the [facility] Office for People With Developmental Disabilities. If such information is present, then the following [facility] mandated warning applies: This information has [...] law may result in a fine or halfway sentence or both. A general authorization for the release of medical or other information is NOT sufficient authorization for further disclosure. Encounters Encounter Providers Location Date Indications Data Source(s ) Outpatient Attender: [id number] [facility] [address] [address] 12/07/2019 [facility] ([facility] 04:08:48 PM [facility]) Patient admitted. Attender: David Palacios 12/02/2019 12:00:00 AM EDT [facility] ([facility]) Office Outpatient Attender: [id number] [facility] [address] 10/03/2019 11:36:20 AM [facility] ([facility]) Patient admitted. Attender: David Palacios 10/01/2019 12:00:00 AM EDT [facility] ([facility]) Office Outpatient Attender: CORTEZMartina [facility] [address] 09/02/2019 09:46:47 AM [facility] ([facility]) Patient admitted. Outpatient Attender: CNR9 [facility] [address] 05/22/2019 06:26:17 AM [facility] ([facility]) Patient admitted. Outpatient Attender: CNR9 [facility] 03/26/2019 03:24:50 PM [facility] ([facility]) Patient admitted. Outpatient Attender: CNR9 [facility] [address] 03/16/2019 04:57:01 PM [facility] ([facility]) Patient admitted. Medications Medication Brand Start Product Dose Route Administrative Pharmacy [facility] Indications Reaction Description Data Name Date Form Instructions Instructions Source(s) Diclofenac DICLOF 09/30/ GEL 1 complet DICLOFE NAC [facility] ([facility] S[facility] 0.2019 ed TOPICAL [facility] 12:00: Medical, Topical Gel L:8556 00 AM ) DICLOFENAC 33 EDT TOPICAL:855 633 Diclofenac DICLOF 09/30/ GEL 1 complet DICLOFE NAC [facility] (St Sodium 0.01 2019 ed TOPICAL [facility] 12:00: Medical, Topical Gel L:8556 00 AM PC) DICLOFENAC 33 EDT TOPICAL:855 633 Insurance Providers Payer name Policy type Policy ID Covered Covered democrat's Policy P alfredo / Coverage democrat ID relationship to Alonzo Inf ormation type alonzo [employer] [id number] [employer]FF[employer] [id number] HEALTH PLAN Problems, Conditions, and Diagnoses Code Display Name Description Problem Type Effective Dates Data Source(s) M47.812 Spondylosis SPONDYLOSIS Problem 10/01/2019 [facility] ([facility] 12:00:00 AM EDT [facility], myelopathy or MYELOPATHY OR PC) radiculopathy, RADICULOPATHY, cervical region CERVICAL REGION M47.812 Spondylosis SPONDYLOSIS Problem 10/01/2019 [facility] ([facility] without WITHOUT 12:00:00 AM EDT [facility], myelopathy or MYELOPATHY OR PC) radiculopathy, RADICULOPATHY, cervical region CERVICAL REGION Surgeries/Procedures Procedure Description Date Indications Data Source(s) Documentation of current 12/02/2019 MED GEN ([facility] (procedure) 12:00:00 AM EDT [facility]) OFFICE OUTPATIENT VISIT 12/02/2019 MEDG EN ([facility] 15 MINUTES 12:00:00 AM ED [facility]) Documentation of current 10/01/2019 MED GEN [...] GEN ([facility] medications (procedure) 12:00:00 AM EDT [facility], ) OFFICE OUTPATIENT VISIT 10/01/2019 [facility] EN [facility]ation of current 10/01/2019 MED GEN ([facility] medications (procedure) 12:00:00 AM EDT [facility], ) Documentation of current 10/01/2019 MED GEN ([facility] medications (procedure) 12:00:00 AM EDT [facility], ) Documentation of current 10/01/2019 MED GEN ([facility] medications (procedure) 12:00:00 AM EDT [facility]) Documentation of current 10/01/2019 MED GEN ([facility] medications (procedure) 12:00:00 AM EDT [facility], ) Documentation of current 10/01/2019 MED GEN ([facility] (procedure) 12:00:00 AM EDT [facility]) OFFICE OUTPATIENT VISIT 10/01/2019 MEDG EN ([facility] 15 MINUTES 12:00:00 AM [facility], ) Social History Code Duration Value Status Description Data Source(s ) Smoking 12/08/2019 - No alcohol - completed - No alcohol - No M EDGEN ([facility] 12:00:00 AM EDT No smoking - smoking - [facility] , ) Cigarettes:neve Cigarettes:never r Smoking 12/08/2019 Unknown if ever completed Unknown if ever MEDG EN ([facility] 12:00:00 AM EDT smoked smoked [facility], ) Smoking 11/03/2019 - No alcohol - completed - No alcohol - No M EDGEN ([facility] 12:00:00 AM EDT No smoking - smoking - [facility] , ) Cigarettes:neve Cigarettes:never r Smoking 11/03/2019 Unknown if ever completed Unknown if ever MEDG EN ([facility] 12:00:00 AM EDT smoked smoked [facility]) Vital Signs ID Date Data Source UNK Name Value Range Interpretation Code Description Data Source(s) Heart rate 68 /min 68 /min [facility] ([facility] , ) Respiratory rate 14 /min 14 /min MED[facility] ( [facility] , ) Inhaled oxygen 98 % 98 % MED[facility] ([facility], ) Body mass index 28.5 kg/m2 28.5 kg/m2 MEDGEN (S t (BMI) [Ratio] [facility], ) Diastolic blood 60 mm[Hg] 60 mm[Hg] MEDGEN (S t pressure [facility] , ) Systolic blood 90 mm[Hg] 90 mm[Hg] [facility] ([facility] , ) Body weight 151 lb 151 lb MEDGEN ([facility] , ) Body height 61 in 61 in MEDGEN ([facility] , ) Heart rate 73 /min 73 /min [facility] ([facility] , ) Respiratory rate 14 /min 14 /min MEDGEN ( [facility] , ) Inhaled oxygen 93 % 93 % MEDGEN ([facility], ) Body mass index 28.5 kg/m2 28.5 kg/m2 MEDGEN (S t (BMI) [Ratio] [facility], ) Diastolic blood 60 mm[Hg] 60 mm[Hg] MEDGEN (S t pressure [facility] , ) Systolic blood 90 mm[Hg] 90 mm[Hg] [facility] ([facility] , ) Body weight 151 lb 151 lb MEDGEN ([facility] , ) Body height 61 in 61 in MEDGEN ([facility] , ) Heart rate 73 /min 73 /min [facility] ([facility] , ) Respiratory rate 14 /min 14 /min MED[facility] ( [facility] , ) Inhaled oxygen 93 % 93 % MEDGEN ([facility], ) Body mass index 28.5 kg/m2 28.5 kg/m2 MEDGEN (S t (BMI) [Ratio] [facility], ) Diastolic blood 60 mm[Hg] 60 mm[Hg] MEDGEN (S t pressure [facility] , ) Systolic blood 90 mm[Hg] 90 mm[Hg] [facility] ([facility] , ) Body weight 151 lb 151 lb MEDGEN ([facility] , ) Body height 61 in 61 in MEDGEN ([facility] , )
[2019-12-18 14:45] VITALS: TEMP 97.7
[2019-12-18] MEDS ORDERED: IOHEXOL 180 MG/1 ML ML IJ ONE (16:17)
[2019-12-18] MEDS ORDERED: BUPIVACAINE HCL/PF 0.5% (5 MG/ML) 30 ML VIAL IJ ONE (16:17)
[2019-12-18] MEDS ORDERED: BUPIVACAINE HCL 50 ML ONE (16:36)
[2019-12-18 17:03] VITALS: BP 107/72; PULSE 83
== END 2019-12-18 17:04 | disposition home or self-care (01) ==
LOC: JASU-SURG 04:53
PROVIDERS: ATTEND Pain Medicine Pain Medicine
PROC: BR14YZZ Fluoroscopy of Cervical Facet Joint(s) using Other Contrast (ICD-10-PCS; 2019-12-18)
PROC: 3E0T3BZ Introduction of Anesthetic Agent into Peripheral Nerves and Plexi, Percutaneous Approach (ICD-10-PCS; principal; 2019-12-18 15:00)
DX: M47.892 Other spondylosis, cervical region (principal)
CPT/HCPCS: 76000-TC-FY

== ENCOUNTER 2020-04-26 16:35 | Emergency (ER) | payer OTHER ==
[2020-04-26 16:40] VITALS: BP 132/74; PULSE 83; TEMP 97.8; BMI 29.0
[2020-04-26 19:47] LABS: BASO % 0.4 % (0-2.0); EOS % 0.7 % (0-4.5); HEMATOCRIT 39.1 % (32.4-45.2); HEMOGLOBIN 12.9 GM/dL (10.7-15.3); MCH 27.4 pg (25.7-33.7); MEAN PLT VOLUME 7.9 fl (7.5-11.1); MONO % 9.5 % (3.8-10.2); NEUT % 53.4 % (42.8-82.8); PLATELET COUNT 422 K/MM3 (134-434); RBC 4.72 M/mm3 (3.60-5.2); RDW 13.4 % (11.6-15.6); WHITE BLOOD COUNT 9.6 K/mm3 (4.0-10.0)
[2020-04-26 20:33] LABS: CHLORIDE 105 mmol/L (98-107); SODIUM 139 mmol/L (136-145)
[2020-04-26 20:37] LABS: ANION GAP 5 MMOL/L (8-16); BLOOD UREA NITROGEN 12.9 mg/dL (7-18); CALCIUM 9.1 mg/dL (8.5-10.1); CO2 29 mmol/L (21-32); GLUCOSE,RANDOM 72 mg/dL (74-106)
[2020-04-26 20:40] LABS: CREATININE 0.6 mg/dL (0.55-1.3); SGOT/AST 16 U/L (15-37); SGPT/ALT 28 U/L (13-61)
[2020-04-26 20:42] LABS: BILIRUBIN,TOTAL 0.2 mg/dL (0.2-1); TOT PROT 8.1 g/dl (6.4-8.2)
[2020-04-26 20:43] LABS: ALK PHOS 69 U/L (45-117)
== END 2020-04-26 22:30 | disposition home or self-care (01) ==
LOC: JER 16:35
DX: R07.9 Chest pain, unspecified (principal)
CPT/HCPCS: 36415; 71046-TC-FY; 71275-TC; 80053; 82550; 84484; 84702; 85025; 93005; 93010; 99285-25; Q9967

== ENCOUNTER 2020-07-04 05:12 | Day surgery (SDC) | payer OTHER ==
[2020-06-30 17:51] VITALS: BMI 29.0
[2020-07-04] MEDS ORDERED: LIDOCAINE HCL/PF 2% SDV 5ML VIAL ONE (17:26)
[2020-07-04] MEDS ORDERED: PROPOFOL 20 ML ONE (17:26)
[2020-07-04] MEDS ORDERED: MIDAZOLAM HCL 2 MG/2 ML SINGLE DOSE VIAL ONE (17:26)
[2020-07-04] MEDS ORDERED: KETOROLAC TROMETHAMINE 30 MG/1 ML VIAL ONE (17:37)
[2020-07-04 18:50] VITALS: BP 107/73; PULSE 81; TEMP 97.8
== END 2020-07-04 19:01 | disposition home or self-care (01) ==
LOC: JASU-SURG 05:12
PROVIDERS: ATTEND Urology
PROC: 0TF3XZZ Fragmentation in Right Kidney Pelvis, External Approach (ICD-10-PCS; principal; 2020-07-04 16:00)
DX: N20.0 Calculus of kidney (principal)
CPT/HCPCS: 81025

== ENCOUNTER 2022-10-22 04:19 | Day surgery (SDC) | payer OTHER ==
[2022-10-17 18:28] VITALS: BMI 28.3
[2022-10-22] MEDS ORDERED: MIDAZOLAM HCL 2 MG/2 ML SINGLE DOSE VIAL ONE (09:14)
[2022-10-22 09:53] VITALS: TEMP 97.8
[2022-10-22 10:34] VITALS: BP 116/71; PULSE 78; RESP 18
== END 2022-10-22 10:40 | disposition home or self-care (01) ==
LOC: JASU-SURG 04:19
PROVIDERS: ATTEND Urology
PROC: 0TF4XZZ Fragmentation in Left Kidney Pelvis, External Approach (ICD-10-PCS; principal; 2022-10-22 08:30)
DX: N20.0 Calculus of kidney (principal)
CPT/HCPCS: 81025

== ENCOUNTER 2023-08-07 10:34 | Inpatient (IN) | payer OTHER ==
[2023-08-07] MEDS: LACTATED RINGERS SOLUTION 1,000 ML/1,000 ML INFUS.BAG IV STA ×2 (11:20→14:31)
[2023-08-07] MEDS ORDERED: morphine SULFATE 4 MG/ML VIAL ONE ×3 (11:44→19:41)
[2023-08-07] MEDS: morphine CARPU-JECT 4 MG/1 ML DISP.SYRIN IVPUSH ONE ×2 (11:55→14:30)
[2023-08-07] MEDS: FAMOTIDINE 20 MG/50 ML IVPB 20 MG/50 ML MG IVPB ONE (12:18)
[2023-08-07] MEDS ORDERED: FAMOTIDINE 10 MG/ML VIAL IVPB ONE (12:22)
[2023-08-07 12:36] LABS: INR 1.06 (0.83-1.09)
[2023-08-07 12:37] LABS: POTASSIUM 3.6 mmol/L (3.5-5.1)
[2023-08-07 12:39] LABS: ALBUMIN 3.3 g/dl (3.4-5.0); BLOOD UREA NITROGEN 8.4 mg/dL (7-18); CALCIUM 9.2 mg/dL (8.5-10.1)
[2023-08-07 12:42] LABS: CREATININE 0.6 mg/dL (0.55-1.3)
[2023-08-07 12:44] LABS: BILIRUBIN,TOTAL 0.4 mg/dL (0.2-1); TOT PROT 7.9 g/dl (6.4-8.2)
[2023-08-07 12:59] LABS: BASO % 0.2 % (0-2.0); EOS % 0.3 % (0-4.5); HEMATOCRIT 39.4 % (32.4-45.2); HEMOGLOBIN 12.8 GM/dL (10.7-15.3); LYMPH % 19.9 % (8-40); MCH 26.8 pg (25.7-33.7); MCHC 32.5 g/dl (32.0-36.0); MEAN CELL VOLUME 82.5 fl (80-96); MEAN PLT VOLUME 7.9 fl (7.5-11.1); MONO % 7.5 % (3.8-10.2); NEUT % 72.1 % (42.8-82.8); PLATELET COUNT 417 10^3/uL (134-434); RBC 4.78 M/mm3 (3.60-5.2); WHITE BLOOD COUNT 15.7 K/mm3 (4.0-10.0)
[2023-08-07 13:05] LABS: EPI CELLS 20 /uL (0-25.1); HYALINE CASTS 2 /uL (0-3.1); PH,URINE 6.5 (5.0-8.0); URINE APPEARANCE CLEAR; URINE BACTERIA 81 /uL (0-1359); URINE BILIRUBIN NEGATIVE (NEGATIVE); URINE COLOR DK YELLOW; URINE GLUCOSE (UA) NEGATIVE (NEGATIVE); URINE KETONE TRACE (NEGATIVE); URINE LEUK ESTERASE NEGATIVE (NEGATIVE); URINE NITRITE NEGATIVE (NEGATIVE); URINE PROTEIN 1+ (NEGATIVE); URINE RBC 38 /uL (0-23.9); URINE WBC 22 /uL (0-25.8)
[2023-08-07] MEDS ORDERED: morphine SULFATE 4 MG/ML VIAL IVPUSH PRN (15:35)
[2023-08-07] MEDS ORDERED: SODIUM CHLORIDE 1,000 ML IV SCH (15:45)
[2023-08-07] MEDS: CIPROFLOXACIN 400 MG/D5W 400 MG/200 ML IVPB IVPB ONE (16:21)
[2023-08-07] MEDS: SODIUM CHLORIDE 1,000 ML IV SCH (16:22)
[2023-08-07] MEDS: SODIUM CHLORIDE 1,000 ML IV STA (16:23)
[2023-08-07] MEDS ORDERED: diphenhydrAMINE HCL 25 MG CAPSULE (FP) PO ONE (17:02)
[2023-08-07] MEDS ORDERED: ACETAMINOPHEN INJECTION 100 ML IVPB ONE (19:47)
[2023-08-07] MEDS: ACETAMINOPHEN 1000 MG/100 ML BAG IVPB PRN (19:53)
[2023-08-08 02:23] VITALS: BMI 30.3
[2023-08-08 08:25] LABS: BASO % 0.6 % (0-2.0); EOS % 0.7 % (0-4.5); HEMATOCRIT 35.1 % (32.4-45.2); HEMOGLOBIN 11.4 GM/dL (10.7-15.3); LYMPH % 20.3 % (8-40); MCH 26.6 pg (25.7-33.7); MCHC 32.5 g/dl (32.0-36.0); MEAN CELL VOLUME 81.8 fl (80-96); MEAN PLT VOLUME 7.4 fl (7.5-11.1); MONO % 7.2 % (3.8-10.2); NEUT % 71.2 % (42.8-82.8); PLATELET COUNT 353 10^3/uL (134-434); RBC 4.29 M/mm3 (3.60-5.2); RDW 13.9 % (11.6-15.6); WHITE BLOOD COUNT 9.8 K/mm3 (4.0-10.0)
[2023-08-08 08:49] LABS: CALCIUM 8.7 mg/dL (8.5-10.1)
[2023-08-08 08:50] LABS: BLOOD UREA NITROGEN 5.7 mg/dL (7-18)
[2023-08-08 08:53] LABS: CREATININE 0.4 mg/dL (0.55-1.3)
[2023-08-09 08:09] LABS: BASO % 0.2 % (0-2.0); EOS % 0.1 % (0-4.5); HEMATOCRIT 36.3 % (32.4-45.2); LYMPH % 15.8 % (8-40); MCH 26.9 pg (25.7-33.7); MCHC 32.9 g/dl (32.0-36.0); MEAN CELL VOLUME 81.8 fl (80-96); MEAN PLT VOLUME 7.4 fl (7.5-11.1); MONO % 4.5 % (3.8-10.2); NEUT % 79.4 % (42.8-82.8); PLATELET COUNT 410 10^3/uL (134-434); RBC 4.44 M/mm3 (3.60-5.2); RDW 13.5 % (11.6-15.6); WHITE BLOOD COUNT 11.8 K/mm3 (4.0-10.0)
[2023-08-09 08:22] LABS: BLOOD UREA NITROGEN 7.2 mg/dL (7-18); CALCIUM 8.6 mg/dL (8.5-10.1)
[2023-08-09 08:26] LABS: CREATININE 0.4 mg/dL (0.55-1.3)
[2023-08-10 09:31] LABS: BASO % 0.3 % (0-2.0); EOS % 0.2 % (0-4.5); HEMATOCRIT 38.8 % (32.4-45.2); LYMPH % 19.4 % (8-40); MCHC 33.6 g/dl (32.0-36.0); MEAN CELL VOLUME 80.4 fl (80-96); MONO % 7.2 % (3.8-10.2); NEUT % 72.9 % (42.8-82.8); PLATELET COUNT 456 10^3/uL (134-434); RBC 4.83 M/mm3 (3.60-5.2); RDW 13.8 % (11.6-15.6); WHITE BLOOD COUNT 11.6 K/mm3 (4.0-10.0)
[2023-08-10 10:09] LABS: BLOOD UREA NITROGEN 5.8 mg/dL (7-18); CALCIUM 8.8 mg/dL (8.5-10.1)
[2023-08-10 10:12] LABS: CREATININE 0.5 mg/dL (0.55-1.3)
[2023-08-13] MEDS: methylPREDNISolone NA SUCC 40 MG/1 ML VIAL IVPUSH ONE (02:41)
[2023-08-13] MEDS: predniSONE 20 MG TABLET (UD) PO ONE ×3 (03:26→15:04)
[2023-08-13] MEDS: INSULIN ASPART SLIDING SCALE (NOVOLOG) 1 VIAL SQ SCH (06:14)
[2023-08-13 06:33] VITALS: RESP 18
[2023-08-13 08:15] LABS: BASO % 0.2 % (0-2.0); EOS % 0.1 % (0-4.5); HEMATOCRIT 41.4 % (32.4-45.2); HEMOGLOBIN 13.9 GM/dL (10.7-15.3); LYMPH % 8.4 % (8-40); MCH 26.9 pg (25.7-33.7); MCHC 33.6 g/dl (32.0-36.0); MEAN CELL VOLUME 80.2 fl (80-96); MONO % 1.9 % (3.8-10.2); NEUT % 89.4 % (42.8-82.8); PLATELET COUNT 464 10^3/uL (134-434); RBC 5.17 M/mm3 (3.60-5.2); RDW 13.9 % (11.6-15.6); WHITE BLOOD COUNT 14.7 K/mm3 (4.0-10.0)
[2023-08-13 08:23] LABS: POTASSIUM 4.2 mmol/L (3.5-5.1)
[2023-08-13 08:27] LABS: CALCIUM 9.1 mg/dL (8.5-10.1)
[2023-08-13 08:28] LABS: ALBUMIN 3.3 g/dl (3.4-5.0); BLOOD UREA NITROGEN 11.8 mg/dL (7-18)
[2023-08-13 08:31] LABS: CREATININE 0.6 mg/dL (0.55-1.3)
[2023-08-13 08:33] LABS: BILIRUBIN,TOTAL 0.5 mg/dL (0.2-1); TOT PROT 7.5 g/dl (6.4-8.2)
[2023-08-13] MEDS: diphenhydrAMINE HCL 25 MG CAPSULE (FP) PO ONE (09:10)
[2023-08-13] MEDS ORDERED: diphenhydrAMINE HCL 25 MG CAPSULE (FP) PO ONE (09:15)
[2023-08-14] MEDS: methylPREDNISolone NA SUCC 40 MG/1 ML VIAL IVPUSH ONE (06:21)
[2023-08-14] MEDS: FAMOTIDINE 20 MG/50 ML IVPB 20 MG/50 ML MG IVPB ONE (06:25)
[2023-08-14 06:38] VITALS: TEMP 98.4
[2023-08-14 14:11] VITALS: BP 118/70; PULSE 98
== END 2023-08-14 15:05 | disposition home or self-care (01) | DRG 244 ==
LOC: JER 10:34 → UNDOADMOB 14:15 → JERBED 14:15 → INTOOBSV 14:15 → J5S 08-08 00:03 → JERBED 08-08 00:03 → J5S 08-08 11:13 → JERBED 08-08 11:13 → OBSVTOIN 08-09 11:32
PROVIDERS: ADMIT Internal Medicine; ATTEND Internal Medicine
DX: K57.20 Diverticulitis of large intestine with perforation and abscess without bleeding (principal); M79.7 Fibromyalgia; E78.5 Hyperlipidemia, unspecified; E11.9 Type 2 diabetes mellitus without complications; I10 Essential (primary) hypertension; G40.909 Epilepsy, unspecified, not intractable, without status epilepticus; Z86.718 Personal history of other venous thrombosis and embolism; L50.0 Allergic urticaria; T50.8X5A Adverse effect of diagnostic agents, initial encounter
CPT/HCPCS: 36415; 71045-TC-FY; 74177-TC; 80048; 80053; 81003; 82962; 83690; 84703; 85025; 85610; 86140; 86850; 86900; 86901; 87086; 93005; 93010; 99285-25; G0378; J0131; Q9967

== ENCOUNTER 2023-08-30 11:33 | Emergency (ER) | payer OTHER ==
[2023-08-30 11:43] VITALS: RESP 18; TEMP 97.7; BMI 28.1
[2023-08-30 12:59] LABS: BASO % 0.7 % (0-2.0); EOS % 0.8 % (0-4.5); HEMATOCRIT 37.6 % (32.4-45.2); LYMPH % 31.1 % (8-40); MCHC 34.5 g/dl (32.0-36.0); MEAN CELL VOLUME 80.9 fl (80-96); MEAN PLT VOLUME 6.8 fl (7.5-11.1); MONO % 7.3 % (3.8-10.2); NEUT % 60.1 % (42.8-82.8); PLATELET COUNT 403 10^3/uL (134-434); RBC 4.65 M/mm3 (3.60-5.2); RDW 14.6 % (11.6-15.6); WHITE BLOOD COUNT 7.6 K/mm3 (4.0-10.0)
[2023-08-30 13:13] LABS: POTASSIUM 4.1 mmol/L (3.5-5.1)
[2023-08-30 13:15] LABS: ALBUMIN 3.5 g/dl (3.4-5.0); BLOOD UREA NITROGEN 8.9 mg/dL (7-18); CALCIUM 9.1 mg/dL (8.5-10.1)
[2023-08-30 13:18] LABS: CREATININE 0.6 mg/dL (0.55-1.3)
[2023-08-30 13:20] LABS: BILIRUBIN,TOTAL 0.3 mg/dL (0.2-1); TOT PROT 7.2 g/dl (6.4-8.2)
[2023-08-30] MEDS ORDERED: diphenhydrAMINE HCL 25 MG CAPSULE (FP) PO ONE (13:20)
[2023-08-30] MEDS ORDERED: methylPREDNISolone NA SUCC 125 MG/2 ML VIAL ONE (13:20)
[2023-08-30] MEDS: diphenhydrAMINE HCL 12.5 MG/5 ML UNIT-DOSE CUPS PO ONE (13:24)
[2023-08-30] MEDS: methylPREDNISolone NA SUCC 125 MG/2 ML VIAL IVPB ONE (13:24)
[2023-08-30] MEDS: LACTATED RINGERS SOLUTION 1,000 ML/1,000 ML INFUS.BAG IV SCH (18:20)
[2023-08-30] MEDS: SODIUM CHLORIDE 0.9% 500 ML INFUS.BAG IV ONE (18:20)
[2023-08-30 18:31] VITALS: BP 121/76; PULSE 83
== END 2023-08-30 19:00 | disposition home or self-care (01) ==
LOC: JER 11:33
PROC: 3E033GC Introduction of Other Therapeutic Substance into Peripheral Vein, Percutaneous Approach (ICD-10-PCS; principal; 2023-08-30)
DX: I26.99 Other pulmonary embolism without acute cor pulmonale (principal); R10.32 Left lower quadrant pain
CPT/HCPCS: 36415; 71275-TC; 74177-TC; 80053; 83690; 84703; 85025; 99285-25

== ENCOUNTER 2024-03-10 04:24 | Inpatient (IN) | payer OTHER ==
[2024-03-03 15:42] VITALS: BMI 28.5
[2024-03-10] MEDS ORDERED: BUPIVACAINE HCL/PF 0.25% (2.5MG/ML) 10 ML VIAL ONE (07:05)
[2024-03-10] MEDS ORDERED: INDOCYANINE GREEN 25 MG/10 ML VIAL IVPUSH ONE (07:05)
[2024-03-10] MEDS ORDERED: CEFOXITIN SODIUM/DEXTROSE,ISO 2 GM/50 ML BAG ONE (07:06)
[2024-03-10] MEDS ORDERED: PROPOFOL 40 ML ONE (08:09)
[2024-03-10] MEDS ORDERED: MIDAZOLAM HCL 2 MG/2 ML SINGLE DOSE VIAL ONE (08:09)
[2024-03-10] MEDS ORDERED: ROCURONIUM BROMIDE 50 MG/5 ML SYRINGE ONE ×3 (08:20→13:12)
[2024-03-10] MEDS: cefOXitin SODIUM 2 GM VIAL (RESTRICTED TO ID) IVPB ONE ×2 (08:40)
[2024-03-10] MEDS ORDERED: HYDROmorphone HCl 2 MG/ML VIAL ONE (08:45)
[2024-03-10] MEDS: BUPIVACAINE HCL/PF 0.25% (2.5MG/ML) 10 ML VIAL IJ ONE ×2 (09:30)
[2024-03-10] MEDS ORDERED: MAGNESIUM SULF 50% (8.12 MEQ/2 ML-1 GM VIAL) ONE (09:31)
[2024-03-10] MEDS ORDERED: LACTATED RINGERS SOLUTION 1,000 ML IV SCH (15:00)
[2024-03-10] MEDS ORDERED: SUGAMMADEX SODIUM 200 MG/2 ML VIAL ONE (15:48)
[2024-03-10] MEDS ORDERED: FAMOTIDINE 20 MG/50 ML IVPB 20 MG/50 ML MG IVPB SCH (17:02)
[2024-03-10] MEDS ORDERED: morphine CARPU-JECT 4 MG/1 ML DISP.SYRIN IVPUSH PRN (17:18)
[2024-03-10] MEDS ORDERED: PIPERACILLIN/TAZOB 3.375 GM 3.375 GM in DEXTROSE 5%-WATER - 50 ML IVPB SCH (18:00)
[2024-03-10] MEDS: CEFOXITIN SODIUM/DEXTROSE,ISO 1 GM/50 ML BAG IVPB SCH (18:15)
[2024-03-10] MEDS: HEPARIN NA (PORCINE) 5,000 UNITS/ML 1ML VIAL SQ ONE (18:23)
[2024-03-10] MEDS: CEFOXITIN SODIUM 2 GM in DEXTROSE 5%-WATER - 100 ML IVPB ONE (18:24)
[2024-03-10] MEDS: CEFOXITIN SODIUM 1 GM in DEXTROSE 5%-WATER - 100 ML IVPB SCH (18:48)
[2024-03-10] MEDS: SODIUM CHLORIDE 1,000 ML IV SCH (19:14)
[2024-03-10] MEDS: morphine SULFATE 4 MG/ML VIAL IVPUSH PRN (20:25)
[2024-03-10] MEDS: ONDANSETRON 4 MG/2 ML VIAL IVPUSH PRN (20:25)
[2024-03-10] MEDS: HEPARIN NA (PORCINE) 5,000 UNITS/ML 1ML VIAL SQ SCH (22:01)
[2024-03-10] MEDS: INSULIN ASPART SLIDING SCALE (NOVOLOG) 1 VIAL SQ SCH (22:02)
[2024-03-10] MEDS: BUDESONIDE/FORMETEROL FUMARATE 160/4.5 mcg INHALER IH SCH (22:02)
[2024-03-10] MEDS: ACETAMINOPHEN 1000 MG/100 ML BAG IVPB SCH (23:39)
[2024-03-11] MEDS: ENOXAPARIN NA (PORCINE) 80 MG/0.8 ML DISP.SYRIN SQ SCH (11:26)
[2024-03-11 11:37] LABS: BASO % 0.1 % (0-2.0); HEMATOCRIT 35.9 % (32.4-45.2); HEMOGLOBIN 11.4 GM/dL (10.7-15.3); LYMPH % 31.7 % (8-40); MCH 26.5 pg (25.7-33.7); MCHC 31.9 g/dl (32.0-36.0); MEAN PLT VOLUME 7.8 fl (7.5-11.1); MONO % 10.3 % (3.8-10.2); NEUT % 57.9 % (42.8-82.8); PLATELET COUNT 351 10^3/uL (134-434); RBC 4.32 M/mm3 (3.60-5.2); RDW 14.3 % (11.6-15.6); WHITE BLOOD COUNT 9.9 K/mm3 (4.0-10.0)
[2024-03-11 12:09] LABS: POTASSIUM 4.2 mmol/L (3.5-5.1)
[2024-03-11 12:10] LABS: MAGNESIUM 2.2 mg/dL (1.8-2.4)
[2024-03-11 12:12] LABS: BLOOD UREA NITROGEN 7.1 mg/dL (7-18)
[2024-03-11 12:16] LABS: CREATININE 0.5 mg/dL (0.55-1.3)
[2024-03-11 15:47] VITALS: RESP 18
[2024-03-11] MEDS: HEPARIN NA (PORCINE) 5,000 UNITS/ML 1ML VIAL SQ SCH (21:24)
[2024-03-12 09:46] LABS: BASO % 0.2 % (0-2.0); EOS % 0.1 % (0-4.5); HEMATOCRIT 34.7 % (32.4-45.2); HEMOGLOBIN 11.3 GM/dL (10.7-15.3); MCH 26.7 pg (25.7-33.7); MCHC 32.5 g/dl (32.0-36.0); NEUT % 69.7 % (42.8-82.8); PLATELET COUNT 343 10^3/uL (134-434); RBC 4.23 M/mm3 (3.60-5.2); RDW 14.3 % (11.6-15.6); WHITE BLOOD COUNT 11.7 K/mm3 (4.0-10.0)
[2024-03-12 10:00] LABS: POTASSIUM 4.1 mmol/L (3.5-5.1)
[2024-03-12 10:01] LABS: CALCIUM 8.1 mg/dL (8.5-10.1)
[2024-03-12 10:02] LABS: BLOOD UREA NITROGEN 6.2 mg/dL (7-18)
[2024-03-12 10:05] LABS: CREATININE 0.4 mg/dL (0.55-1.3)
[2024-03-12] MEDS: ACETAMINOPHEN/CAFFEINE/BUTALBITAL 1 TAB PO PRN (10:07)
[2024-03-12 10:12] LABS: POTASSIUM 4.2 mmol/L (3.5-5.1)
[2024-03-12 10:15] LABS: CALCIUM 8.3 mg/dL (8.5-10.1); MAGNESIUM 2.1 mg/dL (1.8-2.4)
[2024-03-12 10:18] LABS: CREATININE 0.4 mg/dL (0.55-1.3)
[2024-03-12 10:20] LABS: BILIRUBIN,TOTAL 0.4 mg/dL (0.2-1)
[2024-03-12] MEDS: ENOXAPARIN NA (PORCINE) 80 MG/0.8 ML DISP.SYRIN SQ SCH (12:05)
[2024-03-12 12:39] LABS: ALBUMIN 2.9 g/dl (3.4-5.0)
[2024-03-12] MEDS: oxyCODONE HCL 5 MG TABLET PO PRN ×2 (13:42→17:50)
[2024-03-12] MEDS ORDERED: ALBUTEROL SO4 HFA INHALER IH PRN (15:19)
[2024-03-12] MEDS ORDERED: ENOXAPARIN NA (PORCINE) 80 MG/0.8 ML DISP.SYRIN SQ SCH ×2 (22:00)
[2024-03-12] MEDS: BUDESONIDE/FORMETEROL FUMARATE 160/4.5 mcg INHALER IH SCH (22:42)
[2024-03-12] MEDS: APIXABAN 5 MG TABLET PO SCH (22:43)
[2024-03-12] MEDS: DOCUSATE SODIUM 100 MG CAPSULE (FP) PO SCH (22:43)
[2024-03-12] MEDS: INSULIN ASPART SLIDING SCALE (NOVOLOG) 1 VIAL SQ SCH (22:44)
[2024-03-13] MEDS: ACETAMINOPHEN/CAFFEINE/BUTALBITAL 1 TAB PO PRN (02:34)
[2024-03-13] MEDS: FAMOTIDINE 20 MG TABLET PO SCH (09:39)
[2024-03-13 09:40] LABS: BASO % 0.4 % (0-2.0); EOS % 0.8 % (0-4.5); HEMATOCRIT 36.8 % (32.4-45.2); HEMOGLOBIN 11.8 GM/dL (10.7-15.3); LYMPH % 24.4 % (8-40); MCH 26.4 pg (25.7-33.7); MCHC 32.1 g/dl (32.0-36.0); MEAN CELL VOLUME 82.3 fl (80-96); MEAN PLT VOLUME 7.4 fl (7.5-11.1); NEUT % 66.4 % (42.8-82.8); PLATELET COUNT 369 10^3/uL (134-434); RBC 4.47 M/mm3 (3.60-5.2); WHITE BLOOD COUNT 10.8 K/mm3 (4.0-10.0)
[2024-03-13 10:03] LABS: POTASSIUM 3.6 mmol/L (3.5-5.1)
[2024-03-13 10:09] LABS: CALCIUM 8.8 mg/dL (8.5-10.1)
[2024-03-13 10:10] LABS: ALBUMIN 2.9 g/dl (3.4-5.0); BLOOD UREA NITROGEN 5.2 mg/dL (7-18)
[2024-03-13 10:13] LABS: BILIRUBIN,TOTAL 0.5 mg/dL (0.2-1); CREATININE 0.7 mg/dL (0.55-1.3); TOT PROT 6.3 g/dl (6.4-8.2)
[2024-03-13 12:56] VITALS: BP 103/73; PULSE 88; TEMP 98.2
== END 2024-03-13 13:38 | disposition home health service (06) | DRG 221 ==
LOC: J2C 04:24 → J8W 19:08 → UNDODISIN 03-12 14:18
PROVIDERS: ADMIT Surgery; ATTEND Nurse Practitioner Acute Care
PROC: 0T788DZ Dilation of Bilateral Ureters with Intraluminal Device, Via Natural or Artificial Opening Endoscopic (ICD-10-PCS; 2024-03-10)
PROC: 8E0W4CZ Robotic Assisted Procedure of Trunk Region, Percutaneous Endoscopic Approach (ICD-10-PCS; 2024-03-10)
PROC: 0DBN4ZZ Excision of Sigmoid Colon, Percutaneous Endoscopic Approach (ICD-10-PCS; principal; 2024-03-10 08:00)
PROC: 0DNW4ZZ Release Peritoneum, Percutaneous Endoscopic Approach (ICD-10-PCS; 2024-03-10 08:00)
DX: K57.32 Diverticulitis of large intestine without perforation or abscess without bleeding (principal); I10 Essential (primary) hypertension; E11.9 Type 2 diabetes mellitus without complications; E78.5 Hyperlipidemia, unspecified; M79.7 Fibromyalgia; G40.909 Epilepsy, unspecified, not intractable, without status epilepticus; K66.0 Peritoneal adhesions (postprocedural) (postinfection); Z86.718 Personal history of other venous thrombosis and embolism; Z86.711 Personal history of pulmonary embolism
CPT/HCPCS: 36415; 80048; 80053; 81025; 82962; 83735; 85025; 86140; 86850; 86900; 86901; 88307-TC; 94760; J0131; J1644